=== PATIENT | male | born 1970 | race Caucasian/White ===

== ENCOUNTER → 2018-06-17 05:34 | Day surgery (SDC) | payer BC ==
[~2018-06-17 05:34] MED LIST: Atracurium* 10 MG/ML 10 ML VIAL ONE; Buffered Lidocaine 1% SYRIN* 1 ML/SYRINGE INTRADERM ONE; Dexamethasone IV* 4 MG/ML 1 ML (4 MG) IV SLOW PU ONE; Dexamethasone IV* 4 MG/ML 1 ML (4 MG) ONE; DiMENhydriNATE IV* 50 MG/ML VIAL IV PUSH PRN; EPINEPHRINE 1 MG/ML 1 ML VIAL ONE; Famotidine IV* 10 MG/ML 2 ML (20 mg) IV ONE; Famotidine IV* 10 MG/ML 2 ML (20 mg) ONE; HYDROmorphone INJ1* 1 MG/ML SYRINGE IV PRN; Ketorolac INJ* 30 MG/ML 1 ML VIAL ONE; Lactated Ringers 1000 ML Bag* 1,000 ML IV SCH; Lidocaine 2% PF * 5 ML VIAL ONE; Midazolam* 1 MG/ML 5 ML VIAL (5 MG) ONE; Naloxone* 0.4 MG/ML 1 ML VIAL IV PRN; Ondansetron INJ* 2 MG/ML VIAL IV PRN; Ondansetron INJ* 2 MG/ML VIAL ONE; Propofol* 10 MG/ML 20 ML BTL ONE; ROPIVACAINE 5 MG/ML 30 ML BTL (0.5%) ONE; ceFAZolin 2 GM PREMIX in ORs 2 GM/50 ML BAG IVPB ONE; fentaNYL* 50 MCG/ML 2 ML VIAL (100 MCG VIAL) IV PRN; fentaNYL* 50 MCG/ML 2 ML VIAL (100 MCG VIAL) ONE; oxyCODONE/Acetamin 5/325 MG* TAB PO PRN
[2018-06-17 12:14] VITALS: BP 115/78
--- NOTE | 2018-06-19 21:37 | OP ---
OPERATIVE REPORT: DATE OF OPERATION: 06/17/18 DATE OF : 72 SURGEON: Bill Oneill MD FIELD COORDINATOR: MARIA GUADALUPE Oneal A physician business development assistant was required for the length of procedure for assistance with positioning, instr umentation, and closure. ANESTHESIOLOGIST: Dr. Rueda. ANESTHESIA: General anesthesia, regional interscalene block anesthesia. PRE-OP DIAGNOSES: 1. Left shoulder acromioclavicular joint osteoarthritis. 2. Left shoulder subacromial impingement and bursitis. 3. Possible left shoulder superior labrum tear. POST-OP DIAGNOSES: 1. Left shoulder acromioclavicular joint osteoarthritis. 2. Left shoulder subacromial impingement and bursitis. 3. Left shoulder superior labrum tear, type 1, fraying, degeneration. OPERATIVE PROCEDURE: 1. Left shoulder arthroscopic distal clavicle resection. 2. Left shoulder arthroscopic subacromial decompression. 3. Left shoulder limited debridement including debridement of superior labrum. IV FLUIDS: 600 cc crystalloid. ANTIBIOTICS: 2 g Ancef IV. [id number] TIME: 45 minutes. ARTHROSCOPY FLUID UTILIZED: Unknown. SPECIMEN: None. IMPLANTS: None. COMPLICATIONS: None. ESTIMATED BLOOD LOSS: Minimal. 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 Atraumatic onset but worsen ing with paddling. The patient responded with 90% to 95% improvement to an AC joint cortisone injection preoperatively t hat helped for 3 to 4 weeks. His examination demonstrated positive tenderness to palpation of the AC joint with reproduction of his pain. He had no bicipital groove tenderness to palpation. Trace sor eness about AC joint with supraspinatus rotator cuff stress testing. Preoperative MRI showed hypertrophic bony changes about the AC joint, bony edema as well as a lateral acromial spur. There was possible superior labral tear. The patient opted for surgery. Discussed risks and potential complications. I discussed treatment o f superior labrum tear. The patient opted for open biceps tenodesis rather than a tenotomy of this w ere to be required. DESCRIPTION OF PROCEDURE: In preoperative holding, the patient signed a written consent. Operative extremity marked in preoperative holding. The patient was taken back to the operating room and place d supine on the operating room table. It should be noted that in preoperative holding, the patient h ad a regional interscalene block done by Dr. Rueda. Once in the operating room on the operating r oom table, the patient underwent general anesthesia. The patient was then converted to the lateral decubitus position. Axillary roll. Bony prominences pa dded. Jessica bag hardened. Longitudinal traction left shoulder 15 pounds, correct amount of forward f lexion and abduction. Left shoulder was prepped and draped. Surgical time-out performed. Left shoulder glenohumeral joint entered from posterior. 30 cc normal saline. Posterior glenohumeral joint portal established using standard technique. We started diagnostic arthroscopy. No articular cartilage lesion. No loose body. No rotator cuff te ar on the undersurface, all 4 tendons. The patient had no biceps tearing. He had a little bit of re d injection about the tendon especially at its base. There is some clear fraying of the superior lab rum. I established anterior glenohumeral joint portal under direct visualization. I brought arthroscopic shaver in. I debrided some minimal amount of rotator cuff interval synovitis. I moved to the superi or labrum. Debrided some frayed tissue about the superior labrum. I probed the labrum with arthrosc opic probe. The labrum clearly inserted medial to the glenoid rim as it often times does. While the re was degeneration, there was not clearly an unstable labral tear. As well, the patient's preoperat marcos symptoms had really been localized to his AC joint. Therefore, I decided not to perform a biceps tenodesis. I smoothed out the frayed superior labrum tissue and then exited the glenohumeral joint. I entered subacromial space from the anterior and posterior. I noticed immediately there was signifi cant amount of bursitic tissue in this layer. I could not see the rotator cuff at all at first, in t he upper 10% of the amount of bursitis that I encountered in the subacromial spaces. I established a lateral portal. I debrided subacromial bursitic tissue with an arthroscopic shaver. I entered my arthroscopic ulysses and debrided the undersurface of the acromion anteriorly, flattening out the curve. I next addressed the AC joint. I debrided with a VAPR bursitic tissue about the AC joint. I next mo ivette to remove 8 mm of the distal end of the clavicle with an arthroscopic ulysses. I verified from post erior and also from anterior with the arthroscope debridement of all 4 corners of the distal clavicle and generous amount of space remaining between those 2 bones at the conclusion of the distal clavicl e resection. I also removed a small amount of several millimeters of bone about the acromial side of the AC joint. Removal of fluid and instruments from the subacromial space. Closure of skin incisions with [id number] 12 stitches using nylon 3-0 suture. Xeroform, 4x4s, AB Ds, foam tape. A sling was placed. The patient was awakened and extubated and brought to the PACU. DISPOSITION: The patient was discharged home with Percocet as needed for pain control. He will foll ow up 10 to 14 days postoperatively in clinic. He will start physical therapy immediately for range of motion and strengthening of left shoulder. Wound care instructions provided. [id number]/[facility] #: [id number]
== END | disposition home or self-care (01) ==
LOC: OR 05:34
PROVIDERS: ATTEND Orthopaedic Surgery
DX: M19.012 Primary osteoarthritis, left shoulder (principal); M75.42 Impingement syndrome of left shoulder; M75.52 Bursitis of left shoulder; M24.212 Disorder of ligament, left shoulder; G89.18 Other acute postprocedural pain
CPT/HCPCS: J0690; J1100; J1885; J2250; J2405; J2704; J2795; J3010